=== PATIENT | female | born 1955 | race Caucasian/White ===

== ENCOUNTER 2017-10-19 10:13 | Outpatient (CLI) | payer OTHER | END 2017-10-19 10:14 | disposition home or self-care (01) | LOC: BICMAMMO 10:13 | PROVIDERS: ATTEND Family Medicine | DX: Z12.31 Encounter for screening mammogram for malignant neoplasm of breast (principal); Z85.3 Personal history of malignant neoplasm of breast | CPT/HCPCS: 77063; 77067 ==

== ENCOUNTER 2018-11-09 07:52 | Outpatient (CLI) | payer OTHER ==
--- NOTE | 2018-11-09 10:52 | MMO ---
Bilateral MAMMO Bilat Screen [facility]. CLINICAL HISTORY: Patient is 62 years old and is seen for screening. The patient has no family history of breast cancer. The patient has a history of bilateral Implants at age 45, left Excisional Biopsy at age 44 and left Mastectomy at age 44. VIEWS: The views performed were: bilateral craniocaudal; bilateral mediolateral oblique; and bilateral Implant displaced with tomosynthesis. FILMS COMPARED: The present examination has been compared to prior imaging studies performed at [facility] on 07/28/2016 and 10/19/2017, and at [facility] on 08/20/2005 and 08/25/2006. MAMMOGRAM FINDINGS: There are scattered fibroglandular densities. There is a stable intramammary lymph node seen in the right breast. Bilateral implants are stable. There are no suspicious masses, suspicious calcifications, or new areas of architectural distortion. IMPRESSION: THERE IS NO MAMMOGRAPHIC EVIDENCE OF MALIGNANCY. A ROUTINE FOLLOW-UP MAMMOGRAM IN 1 YEAR IS RECOMMENDED. THE RESULTS OF THIS EXAM WERE SENT TO THE PATIENT. ACR BI-RADS Category 2 - Benign finding MAMMOGRAPHY NOTE: 1. A negative mammogram report should not delay a biopsy if a dominant of clinically suspicious mass is present. 2. Approximately 10% to 15% of breast cancers are not detected by mammography. 3. Adenosis and dense breasts may obscure an underlying neoplasm. Reported by: MELISSA SILVER MD Electonically Signed: [id number]
== END 2018-11-09 07:53 | disposition home or self-care (01) ==
LOC: BICMAMMO 07:52
PROVIDERS: ATTEND Physician Assistant
DX: Z12.31 Encounter for screening mammogram for malignant neoplasm of breast (principal)
CPT/HCPCS: 77063; 77067

== ENCOUNTER 2020-02-29 14:30 | Outpatient (CLI) | payer OTHER ==
--- NOTE | 2020-02-29 15:16 | MMO ---
Right Breast MAMMO Unilat Diag [facility]. CLINICAL HISTORY: Patient is 64 years old and is seen for diagnostic exam. The patient has no family history of breast cancer. The patient has a history of bilateral Implants at age 45, left Excisional Biopsy at age 44 and left Mastectomy at age 44. VIEWS: The views performed were: right craniocaudal with tomosynthesis; right mediolateral oblique with tomosynthesis; right mediolateral with tomosynthesis; right craniocaudal implant displaced; right mediolateral oblique implant displaced; and right mediolateral implant displaced. FILMS COMPARED: The present examination has been compared to prior imaging studies performed at [facility] on 07/28/2016, 10/19/2017, 11/09/2018 and 02/29/2020. This study has been interpreted with the assistance of computer-aided detection. MAMMOGRAM FINDINGS: There are scattered fibroglandular densities. There are stable benign appearing calcifications seen in the right breast. There are no suspicious masses, suspicious calcifications, or new areas of architectural distortion. IMPRESSION: THERE IS NO MAMMOGRAPHIC EVIDENCE OF MALIGNANCY. A ROUTINE FOLLOW-UP MAMMOGRAM IN 1 YEAR IS RECOMMENDED. THE RESULTS OF THIS EXAM WERE SENT TO THE PATIENT. ACR BI-RADS Category 2 - Benign finding MAMMOGRAPHY NOTE: 1. A negative mammogram report should not delay a biopsy if a dominant of clinically suspicious mass is present. 2. Approximately 10% to 15% of breast cancers are not detected by mammography. 3. Adenosis and dense breasts may obscure an underlying neoplasm. Reported by: NERISSA MARTINES MD Electonically Signed: [id number]
--- NOTE | 2020-02-29 15:17 | ULT ---
US Breast Limited Rt: 02/29/2020 12:00 AM CLINICAL INDICATION: Palpable axillary mass. COMPARISON: 02/29/2020, 11/09/2018, 10/19/2017 TECHNIQUE: Multiplanar grayscale and color Doppler images were obtained of the breast. FINDINGS: Normal appearing parenchyma is seen. No suspicious mass is seen. No suspicious shadowing is seen. No cyst is identified. A normal appearing lymph node is seen at the area of palpable abnormality in the axilla. IMPRESSION: BI-RADS Category 2-benign findings.
== END 2020-02-29 14:31 | disposition home or self-care (01) ==
LOC: BICMAMMO 14:30
PROVIDERS: ATTEND Physician Assistant
DX: N63.31 Unspecified lump in axillary tail of the right breast (principal)
CPT/HCPCS: 77066; G0279

== ENCOUNTER 2020-06-07 09:36 | Outpatient (CLI) | payer OTHER ==
--- NOTE | 2020-06-07 11:41 | RAD ---
RADIOGRAPH LUMBAR SPINE 2 VIEWS: DATE: 06/07/2020 HISTORY: 64-year-old female with low back pain COMPARISON: 03/14/2015 FINDINGS: 2 standing views. 5 lumbar-type vertebrae. High-grade degenerative bilateral facet hypertrophy at L4- 5 and L5-S1. Somewhat severe disc space narrowing with vacuum disc phenomenon at L5-S1. No high-grade disc space narrowing at rest of levels. Interval development of minimal grade 1 anterolisthesis of L4 on L5 by a couple of millimeters, due t o the facet DJD. No other significant interval change. No high-grade scoliosis. Vertebral body heights are maintained. IMPRESSION: Lumbar spondylosis consisting of high-grade facet osteoarthrosis at L4-5 and L5-S1, and high-grade de generative disc disease at L5-S1.
== END 2020-06-07 09:37 | disposition home or self-care (01) ==
LOC: BICRAD 09:36
PROVIDERS: ATTEND Family Medicine
DX: G60.9 Hereditary and idiopathic neuropathy, unspecified (principal); M47.816 Spondylosis without myelopathy or radiculopathy, lumbar region; M47.817 Spondylosis without myelopathy or radiculopathy, lumbosacral region; M51.37 Other intervertebral disc degeneration, lumbosacral region
CPT/HCPCS: 72100

== ENCOUNTER 2021-03-01 10:15 | Outpatient (CLI) | payer OTHER | END 2021-03-01 10:16 | disposition home or self-care (01) | LOC: BICMAMMO 10:15 | PROVIDERS: ATTEND Family Medicine | DX: Z12.31 Encounter for screening mammogram for malignant neoplasm of breast (principal); Z85.3 Personal history of malignant neoplasm of breast; Z90.12 Acquired absence of left breast and nipple; Z98.82 Breast implant status | CPT/HCPCS: 77063; 77067 ==

== ENCOUNTER 2024-05-06 21:02 | Emergency (ER) | payer BC ==
[2024-05-07] MEDS ORDERED: Amoxicillin/Potassium Clav 875 MG TAB ONE (00:33)
[2024-05-07] MEDS ORDERED: Boostrix 0.5 ML (Tdap) VIAL (>/=7 yrs of age) ONE (00:33)
== END 2024-05-07 00:48 | disposition home or self-care (01) ==
LOC: ERS 21:02
DX: S61.254A Open bite of right ring finger without damage to nail, initial encounter (principal); Z85.3 Personal history of malignant neoplasm of breast; W55.01XA Bitten by cat, initial encounter
CPT/HCPCS: 90471; 90715